=== PATIENT | male | born 1955 | race African-American/Black ===

== ENCOUNTER 2017-04-10 09:07 | Inpatient (IN) | payer OTHER ==
[2017-04-10] VITALS (12 sets, daily range): BP systolic 118–152; BP diastolic 56–97
[~2017-04-10] VITALS: Ht 180.3 cm; Wt 81.6 kg
--- NOTE | 2017-04-10 08:49 | Pre-op HX & Phy Repo 2 SIG ---
DATE OF ADMISSION: 04/10/2017 CHIEF COMPLAINT: Gangrene of the feet. HISTORY OF PRESENT ILLNESS: This is a 61-year-old man who was treated for actinomyces, sepsis, developed gangrene of both feet. [facility]. He comes to the hospital today for partial amputation of both feet. He is unable to walk. PAST MEDICAL HISTORY: End-stage renal disease, now on dialysis, sepsis, hypothyroidism with lymphedema, anemia, gangrene of the feet, and oral ulcers. MEDICATIONS: Reviewed. CODE STATUS: Full Code. ALLERGIES: None. REVIEW OF SYSTEMS: Otherwise unremarkable. PHYSICAL EXAMINATION: GENERAL: He is alert and oriented, in no distress. VITAL SIGNS: Vital signs are stable. He is afebrile. HEENT: Head is normocephalic. NECK: No jugular venous distention. CHEST: Clear. CARDIAC: Rhythm is regular. ABDOMEN: Soft and nontender. EXTREMITIES: There is no edema. He has gangrene of the distal portion of both feet. ASSESSMENT: 1. Gangrene, bilateral feet. 2. Status post sepsis. 3. Renal failure, on dialysis. 4. Hypothyroidism. 5. Anemia. PLAN: The patient is in satisfactory condition for surgery planned by Dr. Wray for partial amputation of the feet. Rogers Gaytan M.D. DR: Irena JOB#: [id number] CC: Juan Shin M.D.; Fax#: [phone] Nejad, D.PPaulette ; Fax#: [phone]
[~2017-04-10 09:07] MED LIST: ceFAZolin sod 1 GM in NS 55 ML IVPB ONE
[2017-04-10] MEDS ORDERED: Bacitracin 50000 Units Vial ONE (12:33)
[2017-04-10] MEDS ORDERED: Bupivacaine 0.5% Inj 30 ml vial INJ ONE (12:33)
[2017-04-10] MEDS ORDERED: BISACODYL10 MG/30 M RC (12:40)
[2017-04-10] MEDS ORDERED: AMOX TR-K CLV1 EAC1 ORAL (12:40)
[2017-04-10] MEDS ORDERED: CALCITRIOL0.25 MCG GT (12:41)
[2017-04-10] MEDS ORDERED: fentaNYL 100 mcg/2 mL IV ONE (13:00)
[2017-04-10] MEDS ORDERED: Dexamethasone 4mg/ml vial ONE (13:00)
[2017-04-10] MEDS ORDERED: Midazolam 2mg/2ml Inj ONE (13:00)
[2017-04-10] MEDS ORDERED: LR 1000ml ONE (13:00)
[2017-04-10] MEDS ORDERED: Lidocaine 1% MPF 10mg/ml 5ml ONE (13:00)
[2017-04-10] MEDS ORDERED: Propofol 10mg/ml 20ml IV ONE (13:00)
--- NOTE | 2017-04-10 13:02 | Anethesia Preoperative Eval ---
Anesthesia Pre-op PMH/ROS General Date of Evaluation: April 10, 2017 Time of Evaluation: 12:56 Anesthesiologist: Enzo ASA Score: ASA 4 Mallampati Score Class I : Soft palate, uvula, fauces, pillars visible Class II: Soft palate, uvula, fauces visible Class III: Soft palate, base of uvula visible Class IV: Only hard plate visible Mallampati Classification: Class III Surgeon: Nils Diagnosis: Bilateral Foot Necrosis Surgical Procedure: Amputation Bilateral Metatarsals Anesthesia History: none Family History: no anesthesia problems Allergies: Coded Allergies: No Known Allergies (Unverified , 04/07/17) Medications: see eMAR Past Medical History Cardiovascular: Reports: HTN Pulmonary: Reports: OMID Gastrointestinal/Genitourinary: Reports: ESRD - ,TH, Sun Endocrine: Reports: hypothyroidism Hematology/Immune: Reports: anemia, other - Actinomyces Sepsis PSxH Narrative: G Tube Anesthesia Pre-op Phys. Exam Physician Exam Last Vital Signs Date Time Temp Pulse Resp B/P Pulse Ox O2 Delivery O2 Flow Rate FiO2 04/10/17 11:33 98.0 84 18 145/82 99 Room Air Constitutional: NAD Neurologic: CN 2-12 intact Cardiovascular: RRR Respiratory: CTA Gastrointestinal: S/NT/ND Airway Exam Mallampati Score: Class III MO: limited ROM: limited Teeth: missing Anesthesia Pre-op A/P Labs Chemistry Test 04/10/17 12:43 Potassium Level Pending Risk Assessment & Plan Assessment: ASA 4 Plan: GA, BIS Status Change Before Surgery: No Pre-Antibiotics Dru Grams Ancef IV Given Within 1 Hr of Incision: Yes Time Given: 13:16 Av Giraldo MD April 10, 2017 13:02
[2017-04-10] MEDS ORDERED: Bupivacaine 0.25% Inj 30ml INJ ONE (13:14)
[2017-04-10] MEDS ORDERED: LR 1000ml 1,000 ML IVLG SCH (13:26)
--- NOTE | 2017-04-10 13:28 | Immediate Post-Op Evaluation ---
Immediate Post-Op Evalulation Immediate Post-Op Evalulation Procedure: Bilateral Metatarsal Amputation Date of Evaluation: April 10, 2017 Time of Evaluation: 15:15 IV Fluids: 500 Blood Products: 0 Estimated Blood Loss: 10 Urinary Output: 0 Blood Pressure Systolic: 118 Blood Pressure Diastolic: 56 Pulse Rate: 91 Respiratory Rate: 16 O2 Sat by Pulse Oximetry: 100 Temperature (Fahrenheit): 97 Pain Score (1-10): 3 Nausea: No Vomiting: No Complications 0 Patient Status: awake, reacts, patent, extubated, none Hydration Status: adequate Dru Grams Ancef IV Given Within 1 Hr of Incision: Yes Time Given: 13:16 Av Giraldo MD April 10, 2017 13:28
[2017-04-10] MEDS ORDERED: Ketorolac 60mg Inj IV PRN (13:30)
[2017-04-10] MEDS ORDERED: Norco 5mg/325mg tab ORAL PRN (13:30)
[2017-04-10] MEDS ORDERED: Midazolam 2mg/2ml Inj IVP PRN (13:30)
[2017-04-10] MEDS ORDERED: Norco 7.5mg/325mg tab ORAL PRN (13:30)
[2017-04-10] MEDS ORDERED: Oxycodone/Acetaminophen 5-325 ORAL PRN (13:30)
[2017-04-10] MEDS ORDERED: Ketorolac 30mg Inj IV PRN (13:30)
[2017-04-10] MEDS ORDERED: DiphenhydrAMINE 50mg/ml Inj IVP PRN (13:30)
[2017-04-10] MEDS ORDERED: Atropine Inj 1mg/10ml Syr IV PRN (13:30)
[2017-04-10] MEDS ORDERED: fentaNYL 100 mcg/2 mL IV PRN (13:30)
[2017-04-10] MEDS ORDERED: Metoclopramide 10mg/2ml Inj IVP PRN (13:30)
[2017-04-10] MEDS ORDERED: Meperidine 25mg/0.5ml Inj IV PRN (13:30)
[2017-04-10] MEDS ORDERED: LORazepam Inj 2mg/ml 1ml IV PRN (13:30)
[2017-04-10] MEDS ORDERED: POLYETHYLENE GL17 GM GT (13:57)
[2017-04-10] MEDS ORDERED: NEPHROVITE1 TAB GT (13:57)
[2017-04-10] MEDS ORDERED: SENNA8.6 M2 GT (13:57)
[2017-04-10] MEDS ORDERED: HEPARIN SO5000 UNIT2 SUBQ (13:57)
[2017-04-10] MEDS ORDERED: PHOSLYRA667 MG/5 M GT (13:57)
[2017-04-10] MEDS ORDERED: SYNTHROID50 MCG GT (13:57)
[2017-04-10] MEDS ORDERED: NYSTATIN500000 UNI ORAL (13:57)
[2017-04-10] MEDS ORDERED: ZANTAC150 MG GT (14:07)
--- NOTE | 2017-04-10 14:53 | Pre-Procedure Note/Attestation ---
Pre-Procedure Note/Attestation Complete Prior to Procedure Planned Procedure: bilateral Procedure Narrative: Bilateral Transmetatarsal Amputation Indications for Procedure Pre-Operative Diagnosis: Gangrene Bilateral feet ESRD Attestation I attest that I discussed the nature of the procedure; its benefits; risks and complications; and alternatives (and the risks and benefits of such alternatives ), prior to the procedure, with the patient (or the patient's legal ocean import representative). I attest that, if there was a reasonable possibility of needing a blood transfusion, the patient (or the patient's legal ocean import representative) was given the [facility] standardized written summary, pursuant to the Blake Gurpreet Blood Safety Act ([place] Health and Safety Code # 1645, as amended). I attest that I re-evaluated the patient just prior to the surgery and that there has been no change in the patient's H&P, except as documented below: Mirza Wray DPM April 10, 2017 14:53
--- NOTE | 2017-04-10 15:20 | Brief Operative Note ---
Immediate Post Operative Note Operative Note Chief Complaint: Dict# [id number] Pre-op Diagnosis: Gangrene Bilateral feet ESRD Procedure: Right foot transmetatarsal amputation Left foot transmetatarsal amputation Post-op Diagnosis: same as pre-op Surgeon: Mirza Wray DPM [employer] Executive Director: none Additional Surgeons: none Anesthesiologist: Jose Anesthesia: general Specimen: yes - right and left forefoot. cultures of right and left foot wounds Complications: none Condition: stable Estimated Blood Loss: volume - 10 Drains: none Tourniquet time: 66 - min Implant(s) used?: No Mirza Wray DPM April 10, 2017 15:20
[2017-04-10] MEDS: Hydromorphone 0.5mg/0.5ml inj IVP PRN ×4 (15:25→16:22)
--- NOTE | 2017-04-10 22:19 | Operative Note - Dictated ---
DATE OF OPERATION: 04/10/2017 SURGEON: Mirza Wray D.P.M. TAX ACCOUNTING ASSISTANT SURGEON: None. ANESTHESIOLOGIST: Av Giraldo M.D. TYPE OF ANESTHESIA: General with LMA. PREOPERATIVE DIAGNOSES: 1. Gangrene, left foot. 2. Gangrene, right foot. 3. End-stage renal disease. POSTOPERATIVE DIAGNOSES: 1. Gangrene, left foot. 2. Gangrene, right foot. 3. End-stage renal disease. PROCEDURE PERFORMED: 1. Right foot transmetatarsal amputation. 2. Left foot transmetatarsal amputation. SPECIMENS: Right and left forefoot as well as cultures of right and left wound. COMPLICATIONS: None. CONDITION: At PACU stable. ESTIMATED BLOOD LOSS: About 10 mL. DRAINS: No drain. TOURNIQUET TIME: 33 minutes each side. IMPLANTS USED: None. OPERATIVE PROCEDURE: The patient was transported to the operating room and placed on the operating table in a supine position. Anesthesiologist then began general anesthesia. The right and left ankle were blocked utilizing 10 mL each of 0.25% plain Marcaine. Bilateral feet were scrubbed, prepped, and draped in an usual aseptic manner. After anesthesia check, Esmarch was utilized to exsanguinate the right foot. Tourniquet was inflated to a pressure of 250 mmHg. A fishmouth incision was made along the right forefoot and encompassed the entire gangrenous site. There was a plantar medial necrosis that was extending more proximally than that the rest of the necrosis. This was included in the excised forefoot. Incision was deepened down to bone level. Open lumens were cauterized. The forefoot was disarticulated at the metatarsophalangeal joints. Plantar and dorsal flaps were elevated. Surgicel was utilized to resect the distal one-third of the metatarsals. One, two, three, four, and five metatarsals were excised. Wound was examined. Cultures were taken. Again, any open lumens were cauterized. Wound was flushed with saline and bacitracin. The incision was coapted utilizing 3-0 Vicryl and skin with payton. A temporary dressing was placed. Tourniquet was deflated at 33 minutes. Exactly the same operative procedure was performed for the left side. No deviation from anything specified above was performed. Tourniquet was deflated at 33 minutes on the left side as well. Dressings were applied to both sides. The patient tolerated the procedure and anesthesia well and was transported to the recovery room in stable condition. There were no complications. We will admit the patient to the floor for observation for bleeding and pain management. Medical orders will be completed by Dr. Rogers Gaytan. Case was discussed with the patient's sister, Gregg Epps, in the surgical waiting area. She understands that the procedure went well. We will monitor for any infections, dehiscence, and recurrence for gangrenous changes to the feet. The patient requires to be nonambulatory bilaterally until the incisions are healed. If the patient's condition is stable, we will return back to the [facility] for continued follow up and rehabilitation. Mirza Wray D.P.M. DR: TRES JOB#: [id number] CC:
[2017-04-11] MEDS: Norco 10mg/325mg tab ORAL PRN ×2 (03:22→22:49)
[2017-04-11 04:00] VITALS: BP 150/96
[2017-04-11] MEDS ORDERED: Heparin Sod 1000 units/ml 10ml IV ONE (06:00)
[2017-04-11] MEDS: Hydromorphone 0.5mg/0.5ml inj IVP PRN ×3 (06:52→19:49)
[2017-04-11 08:00] VITALS: BP 112/62
[2017-04-11 08:27] LABS: BASOPHILS % (AUTO) 0.8 % (0.0-2.0); EOSINOPHILS % (AUTO) 0.3 % (0.0-3.0); LYMPHOCYTES % (AUTO) 25.3 % (20.0-45.0); MEAN CORPUSCULAR HGB CONC 30.4 G/DL (32.0-36.0); MEAN CORPUSCULAR VOLUME 99 FL (80-99); MEAN PLATELET VOLUME 6.2 FL (6.5-10.1); MONOCYTES % (AUTO) 9.2 % (1.0-10.0); NEUTROPHILS % (AUTO) 64.4 % (45.0-75.0); PLATELET COUNT 386 K/UL (150-450); RED BLOOD COUNT 3.75 M/UL (4.70-6.10); WHITE BLOOD COUNT 8.8 K/UL (4.8-10.8)
[2017-04-11] MEDS: Nephrovite tab GT SCH ×2 (08:30→14:22)
[2017-04-11 08:39] LABS: ANION GAP 12 (5-15); CALCIUM 9.3 mg/dL (8.6-10.2); CARBON DIOXIDE 25 mEQ/L (20-30); CHLORIDE 97 mEQ/L (98-107); GLOMERULAR FILTRATION RATE > 60 mL/min (>60); HEMOLYSIS 3; PHOSPHORUS 3.3 mg/dL (2.5-4.8); POTASSIUM 4.7 mEQ/L (3.4-4.9); SODIUM 134 mEQ/L (135-145)
--- NOTE | 2017-04-11 09:30 | 48 Hour Post Anesthesia Eval ---
Post Anesthesia Evaluation Procedure: Bilateral Metatarsal Amputation Date of Evaluation: April 11, 2017 Time of Evaluation: 09:33 Blood Pressure Systolic: 112 0: 62 Pulse Rate: 99 Respiratory Rate: 20 Temperature (Fahrenheit): 97.9 O2 Sat by Pulse Oximetry: 95 Airway: patent Nausea: No Vomiting: No Pain Intensity: 3 Hydration Status: adequate Cardiopulmonary Status: Stable Mental Status/LOC: patient returned to baseline Follow-up Care/Observations: As per surgery Post-Anesthesia Complications: No anesthetic complication Follow-up care needed: N/A DANILO VILLALBA M.D. April 11, 2017 09:30
[2017-04-11 12:00] VITALS: BP 123/74
--- NOTE | 2017-04-11 14:12 | General Progress Note ---
Assessment/Plan Assessment/Plan 1. Gangrene, bilateral feet. 2. Status post sepsis. 3. Renal failure, on dialysis. 4. Hypothyroidism. 5. Anemia. tolerated surgery well Cr 1.0 disc w Delbert Wray and Aleida will hold dialysis and check 24 hr Cr clearance post op care SNF when ok w podiatry Subjective Constitutional: Reports: other - surgical pain Allergies: Coded Allergies: No Known Allergies (Unverified , 04/07/17) Objective Last 24 Hour Vital Signs Date Time Temp Pulse Resp B/P Pulse Ox O2 Delivery O2 Flow Rate FiO2 04/11/17 12:00 97.7 90 19 123/74 99 Nasal Cannula 2.0 04/11/17 09:30 99 20 95 04/11/17 08:00 97.9 99 20 112/62 95 Nasal Cannula 2.0 04/11/17 04:00 97.0 86 18 150/96 100 Room Air 04/10/17 20:00 97.0 109 18 118/73 100 Room Air 04/10/17 18:00 97.0 96 18 152/97 98 Room Air 04/10/17 16:34 98.0 90 18 140/79 100 Nasal Cannula 2.0 04/10/17 16:26 97.0 04/10/17 16:20 97.0 04/10/17 16:20 97.0 04/10/17 16:03 93 18 136/79 100 Nasal Cannula 2.0 04/10/17 15:46 98 18 145/79 100 Nasal Cannula 2.0 04/10/17 15:43 96 18 134/81 100 Nasal Cannula 2.0 04/10/17 15:29 97 18 152/90 100 Nasal Cannula 2.0 04/10/17 15:25 94 18 149/76 100 Simple Mask 6.0 04/10/17 15:14 99 18 118/81 100 Simple Mask 6.0 04/10/17 15:10 100 14 123/58 100 Simple Mask 6.0 04/10/17 15:05 91 16 100 04/10/17 15:04 97.0 102 16 118/56 100 Simple Mask 6.0 Intake and Output 04/10/17 04/11/17 19:00 07:00 Intake Total 1240 ml 200 ml Output Total 10 ml 200 ml Balance 1230 ml 0 ml Intake Oral 240 ml 200 ml IV Total 1000 ml Output Urine Total 200 ml Estimated Blood Loss 10 ml # Voids 1 1 Laboratory Tests 04/11/17 08:15: White Blood Count 8.8, Red Blood Count 3.75L, Hemoglobin 11.2L, Hematocrit 37.0L , Mean Corpuscular Volume 99, Mean Corpuscular Hemoglobin 30.0, Mean Corpuscular Hemoglobin Concent 30.4L, Red Cell Distribution Width 14.0, Platelet Count 386, Mean Platelet Volume 6.2L, Neutrophils (%) (Auto) 64.4, Lymphocytes (%) (Auto) 25.3, Monocytes (%) (Auto) 9.2, Eosinophils (%) (Auto) 0.3, Basophils (%) (Auto) 0.8, Sodium Level 134L, Potassium Level 4.7, Chloride Level 97L, Carbon Dioxide Level 25, Anion Gap 12, Blood Urea Nitrogen 23, Creatinine 1.0, Estimat Glomerular Filtration Rate > 60, Glucose Level 117H, Calcium Level 9.3, Phosphorus Level 3.3 Height (Feet): 5 Height (Inches): 11.00 Weight (Pounds): 180 General Appearance: WD/WN, no apparent distress Neck: supple Cardiovascular: normal rate Respiratory/Chest: lungs clear HENNY FREEMAN April 11, 2017 14:12
--- NOTE | 2017-04-11 14:23 | History & Physical ---
History and Physical History & Physicial HP dictated # [id number] GRAEME VENTURA April 11, 2017 14:23
[2017-04-11 16:00] VITALS: BP 121/74
--- NOTE | 2017-04-11 16:23 | Podiatric Progress Note ---
Assessment/Plan Patient Waldemar Epps is a 62 year old male who was admitted on April 10, 2017 at 10:50 with Problems: Assessment/Plan A/ Gangrene bilateral feet ESRD P/ Plan for first post op dressing change tomorrow. If looks good will d/c back to SNF tomorrow. Cont pain meds PRN Strict non weight bearing bilateral feet. Case d/w nursing. Subjective Allergies: Coded Allergies: No Known Allergies (Unverified , 04/07/17) Subjective Pain managed well. He is happy that he had surgery and also that his might not need dialysis. He was seen by PT. Objective Exam Last 24 Hour Vital Signs Date Time Temp Pulse Resp B/P Pulse Ox O2 Delivery O2 Flow Rate FiO2 04/11/17 12:00 97.7 90 19 123/74 99 Nasal Cannula 2.0 04/11/17 09:30 99 20 95 04/11/17 08:00 97.9 99 20 112/62 95 Nasal Cannula 2.0 04/11/17 04:00 97.0 86 18 150/96 100 Room Air 04/10/17 20:00 97.0 109 18 118/73 100 Room Air 04/10/17 18:00 97.0 96 18 152/97 98 Room Air 04/10/17 16:34 98.0 90 18 140/79 100 Nasal Cannula 2.0 04/10/17 16:26 97.0 04/10/17 16:20 97.0 04/10/17 16:20 97.0 Laboratory Tests Test 04/11/17 08:15 White Blood Count 8.8 K/UL (4.8-10.8) Red Blood Count 3.75 M/UL (4.70-6.10) L Hemoglobin 11.2 G/DL (14.2-18.0) L Hematocrit 37.0 % (42.0-52.0) L Mean Corpuscular Volume 99 FL (80-99) Mean Corpuscular Hemoglobin 30.0 PG (27.0-31.0) Mean Corpuscular Hemoglobin Concent 30.4 G/DL (32.0-36.0) L Red Cell Distribution Width 14.0 % (11.6-14.8) Platelet Count 386 K/UL (150-450) Mean Platelet Volume 6.2 FL (6.5-10.1) L Neutrophils (%) (Auto) 64.4 % (45.0-75.0) Lymphocytes (%) (Auto) 25.3 % (20.0-45.0) Monocytes (%) (Auto) 9.2 % (1.0-10.0) Eosinophils (%) (Auto) 0.3 % (0.0-3.0) Basophils (%) (Auto) 0.8 % (0.0-2.0) Sodium Level 134 mEQ/L (135-145) L Potassium Level 4.7 mEQ/L (3.4-4.9) Chloride Level 97 mEQ/L (98-107) L Carbon Dioxide Level 25 mEQ/L (20-30) Anion Gap 12 (5-15) Blood Urea Nitrogen 23 mg/dL (7-23) Creatinine 1.0 mg/dL (0.7-1.2) Estimat Glomerular Filtration Rate > 60 mL/min (>60) Glucose Level 117 mg/dL (74-106) H Calcium Level 9.3 mg/dL (8.6-10.2) Phosphorus Level 3.3 mg/dL (2.5-4.8) Microbiology Date/Time Source Procedure Growth Status 04/10/17 15:01 Foot Left Gram Stain - Final Resulted 04/10/17 15:01 Foot Left Aerobic Culture Pending Resulted 04/10/17 15:01 Foot Left Anaerobic Culture Pending Resulted Dermatological Dermatological Narrative Bilateral bandages clean dry and intact. No strike through Mirza Wray [facility] April 11, 2017 16:23
[2017-04-11 20:00] VITALS: BP 130/70
[2017-04-12] VITALS: BP 140/85
--- NOTE | 2017-04-12 01:11 | Consultation ---
DATE OF CONSULTATION: 04/10/2017 NEPHROLOGY CONSULTATION REFERRING PHYSICIAN: Rogers Gaytan M.D. REASON FOR CONSULTATION: Renal failure. HISTORY OF PRESENT ILLNESS: This is a 62-year-old male, who was admitted to [facility] few months ago with sepsis, respiratory failure. He had actinomyces in the blood. He was in septic shock requiring pressors and ventilator. Eventually, he improved to the point when he was taken off ventilator and sent to medical floor. He had developed bilateral lower extremity gangrene. Also, he remained dialysis dependent. He was eventually discharged to [facility] under the care of Dr. Gaytan. Since then, he has been on hemodialysis every Monday, , and Monday. PAST MEDICAL HISTORY: Also, includes history of hypothyroidism, anemia, and oral ulcers for which he received G-tube. MEDICATIONS: Reviewed. ALLERGIES: No known drug allergies. SOCIAL HISTORY: No history of smoking or alcohol abuse. The patient used to work as a business process consultant. REVIEW OF SYSTEMS: Unremarkable. PHYSICAL EXAMINATION: GENERAL: The patient is a pleasant male, in no acute distress. VITAL SIGNS: Blood pressure is 122/74, pulse 90, temperature 97.7 degrees, and respiratory rate is 19. HEENT: [place] conjunctivae. Anicteric sclerae. NECK: Supple. LUNGS: Clear to auscultation. HEART: S1 and S2 without murmurs or rubs. ABDOMEN: Soft and nontender. EXTREMITIES: No cyanosis or edema. The patient has bilateral amputation at the transmetatarsal area. LABORATORY AND DIAGNOSTIC DATA: CBC shows a WBC of 8.8, hematocrit 37, hemoglobin is 10.2, and platelets 386,000. Chemistry panel shows serum sodium 134, potassium 4.7, chloride 97, BUN is 23, creatinine 1, and blood sugar is 117. Calcium is 9.3. Phosphorus 2.3. ASSESSMENT: This is a 62-year-old male, who was admitted with bilateral lower extremity gangrene in the distal foot. He had bilateral foot amputations by Dr. Wray. In terms of his renal function, he has been on dialysis in the past, but his creatinine is now lower than baseline. He still says that he does not make much urine. PLAN: I would hold off on dialysis. At this point, I will get a 24-hour urine for creatinine clearance. Case was discussed with the RN, also with Dr. Gaytan. Further recommendations will be given based on those results regarding continuation of dialysis. Thank you very much. Juan Shin M.D. DR: ESTEVAN JOB#: [id number] CC: MICKEY
[2017-04-12] MEDS: Hydromorphone 0.5mg/0.5ml inj IVP PRN ×2 (01:31→06:58)
[2017-04-12 04:00] VITALS: BP 146/88
[2017-04-12 06:28] LABS: BASOPHILS % (AUTO) 1.3 % (0.0-2.0); LYMPHOCYTES % (AUTO) 33.4 % (20.0-45.0); MEAN CORPUSCULAR HEMOGLOBIN 30.5 PG (27.0-31.0); MEAN CORPUSCULAR HGB CONC 30.7 G/DL (32.0-36.0); MEAN CORPUSCULAR VOLUME 99 FL (80-99); MEAN PLATELET VOLUME 6.4 FL (6.5-10.1); MONOCYTES % (AUTO) 9.8 % (1.0-10.0); NEUTROPHILS % (AUTO) 52.4 % (45.0-75.0); PLATELET COUNT 393 K/UL (150-450); RED BLOOD COUNT 3.64 M/UL (4.70-6.10); RED CELL DISTRIBUTION WIDTH 14.1 % (11.6-14.8)
[2017-04-12 06:46] LABS: ALANINE AMINOTRANSFERASE 55 U/L (3-41); ALBUMIN/GLOBULIN RATIO 0.6 (1.0-2.7); ANION GAP 11 (5-15); ASPARTATE AMINO TRANSFERASE 44 U/L (5-40); CALCIUM 9.7 mg/dL (8.6-10.2); CARBON DIOXIDE 26 mEQ/L (20-30); CHLORIDE 98 mEQ/L (98-107); GLOMERULAR FILTRATION RATE > 60 mL/min (>60); HEMOLYSIS 1; SODIUM 135 mEQ/L (135-145); TOTAL PROTEIN 6.9 g/dL (6.6-8.7)
[2017-04-12 08:00] VITALS: BP 94/54
[2017-04-12] MEDS: Nephrovite tab GT SCH (08:39)
[2017-04-12 12:00] VITALS: BP 148/96
[2017-04-12] MEDS: Norco 10mg/325mg tab ORAL PRN ×3 (13:21→21:33)
--- NOTE | 2017-04-12 15:20 | Podiatric Progress Note ---
Assessment/Plan Patient Waldemar Epps is a 62 year old male who was admitted on April 10, 2017 at 10:50 with Problems: Assessment/Plan A/ Gangrene bilateral feet s/p bilateral TMA ESRD P/ First post op dressing change today. No further dressings changes needed until after discharge Cultures bilateral - no growth Cont pain meds PRN. Pain managed with [place] Strict non weight bearing bilateral feet. Discussed with patient. Also discussed recovery with him again. Case d/w nursing. Ok to D/C to SNF from my standpoint, will follow there. Subjective Allergies: Coded Allergies: No Known Allergies (Unverified , 04/07/17) Subjective Patient's pain controlled with intermittent [place]. No complaints. Objective Exam Last 24 Hour Vital Signs Date Time Temp Pulse Resp B/P Pulse Ox O2 Delivery O2 Flow Rate FiO2 04/12/17 14:20 98.4 04/12/17 12:00 97.7 115 18 148/96 96 Room Air 04/12/17 08:00 98.4 118 18 94/54 98 04/12/17 07:28 97.3 04/12/17 04:00 97.3 103 20 146/88 96 Nasal Cannula 2.0 04/12/17 00:00 98.1 110 20 140/85 96 Nasal Cannula 2.0 04/11/17 20:00 97.9 94 20 130/70 94 Nasal Cannula 2.0 04/11/17 16:00 97.8 96 20 121/74 98 Nasal Cannula 2.0 Laboratory Tests Test 04/12/17 05:10 White Blood Count 10.0 K/UL (4.8-10.8) Red Blood Count 3.64 M/UL (4.70-6.10) L Hemoglobin 11.1 G/DL (14.2-18.0) L Hematocrit 36.2 % (42.0-52.0) L Mean Corpuscular Volume 99 FL (80-99) Mean Corpuscular Hemoglobin 30.5 PG (27.0-31.0) Mean Corpuscular Hemoglobin Concent 30.7 G/DL (32.0-36.0) L Red Cell Distribution Width 14.1 % (11.6-14.8) Platelet Count 393 K/UL (150-450) Mean Platelet Volume 6.4 FL (6.5-10.1) L Neutrophils (%) (Auto) 52.4 % (45.0-75.0) Lymphocytes (%) (Auto) 33.4 % (20.0-45.0) Monocytes (%) (Auto) 9.8 % (1.0-10.0) Eosinophils (%) (Auto) 3.0 % (0.0-3.0) Basophils (%) (Auto) 1.3 % (0.0-2.0) Sodium Level 135 mEQ/L (135-145) Potassium Level 5.0 mEQ/L (3.4-4.9) H Chloride Level 98 mEQ/L (98-107) Carbon Dioxide Level 26 mEQ/L (20-30) Anion Gap 11 (5-15) Blood Urea Nitrogen 23 mg/dL (7-23) Creatinine 1.0 mg/dL (0.7-1.2) Estimat Glomerular Filtration Rate > 60 mL/min (>60) Glucose Level 91 mg/dL (74-106) Calcium Level 9.7 mg/dL (8.6-10.2) Total Bilirubin 0.6 mg/dL (0.0-1.2) Aspartate Amino Transf (AST/SGOT) 44 U/L (5-40) H Alanine Aminotransferase (ALT/SGPT) 55 U/L (3-41) H Alkaline Phosphatase 203 U/L (40-129) H Total Protein 6.9 g/dL (6.6-8.7) Albumin 2.8 g/dL (3.5-5.2) L Globulin 4.1 g/dL Albumin/Globulin Ratio 0.6 (1.0-2.7) L Microbiology Date/Time Source Procedure Growth Status 04/10/17 12:15 Nasal Nares MRSA Culture - Final NO METHICILLIN RESISTANT STAPH AUREUS... Complete 04/10/17 15:01 Foot Left Gram Stain - Final Resulted 04/10/17 15:01 Foot Left Aerobic Culture - Preliminary Resulted 04/10/17 15:01 Foot Left Anaerobic Culture Pending Resulted Dermatological Dermatological Narrative Bilateral incisions are well coapted, no signs of acute infection. Mirza Wray DPLalo April 12, 2017 15:20
[2017-04-12 16:00] VITALS: BP 139/83
[2017-04-12] MEDS ORDERED: Acetaminophen 500mg (ES) tab ORAL ONE (16:30)
[2017-04-12 17:03] LABS: TOTAL PROTEIN 24HR URINE 511.5 mg/24hr (< 150)
[2017-04-12] MEDS ORDERED: HYDROCODON-ACE1 EA13 ORAL (17:16)
--- NOTE | 2017-04-12 17:20 | Discharge Summary ---
Discharge Summary Hospital Course Date of Admission April 10, 2017 at 10:50 Date of Discharge 04/12/17 Admitting Diagnosis gangrene, feet HPI Waldemar Epps is a 62 year old male who was admitted on April 10, 2017 at 10:50 for Gangrene Bilateral Feet Consultations podiatry, renal Procedures bilateral partial foot amputations Hospital Course was on dialysis but Cr normal; dialysis held amputations done with no complications dc snf off dialysis 24 hr urine pending Discharge Medications New Medications: Hydrocodone Bit/Acetaminophen 10-325* (Hydrocodon-Acetaminophn 10-325*) 1 Each Tablet 1 EA ORAL Q4H PRN, #1 TAB Continued Medications: Bisacodyl (Bisacodyl) 10 Mg/30 Ml Enema 10 MG RC PRN, EA Heparin Sod (Porcine) (Heparin Sodium*) 5 000/1 Ml Vial 5000 UNITS SUBQ TUES, THURS, SAT , VIAL Levothyroxine Sodium (Synthroid) 50 Mcg Tablet 175 MCG GT DAILY, TAB Take in the morning on an empty stomach, at least 30 minutes beforefood. Polyethylene Glycol 3350* (Polyethylene Glycol 3350*) 17 Gm Powd.pack 17 GM GT PRN, PACKET Ranitidine Hcl* (Zantac*) 150 Mg Tablet 150 MG GT BID, #30 TAB 0 Refills Sennosides (Senna) 8.6 Mg Tablet 8.6 MG GT BID PRN for Constipation, TAB Vitamin B Cmplx/Vit C/Folic AC (Nephro-Kalina Tablet) 0.8 Mg Tablet 1 TAB GT DAILY, #30 TAB 0 Refills Discontinued Medications: Amoxicillin/Potassium Clav 500-125 Mg Tab* (Amox Tr-K Clv 500-125 Mg Tab*) 1 Each Tablet 1 TAB ORAL DAILY, TAB Calcitriol (Calcitriol) 0.25 Mcg Capsule 0.25 MCG GT, CAP Calcium Acetate (Phoslyra) 667 Mg/5 Ml Solution 667 MG GT Nystatin (Nystatin) 500,000 Unit Tablet 447135 UNIT ORAL Q6HR, TAB Discharge Condition Upon Discharge: improving, stable Discharge Disposition Patient was discharged to Discharge Diagnoses: (1) Gangrene of foot (2) Renal failure (3) Hypothyroid HENNY FREEMAN April 12, 2017 17:20
[2017-04-12 20:00] VITALS: BP 121/71
[2017-04-13] MEDS: Norco 10mg/325mg tab ORAL PRN ×2 (03:01→06:44)
[2017-04-13 04:00] VITALS: BP 144/87
[2017-04-13 04:30] VITALS: BP 144/87
[2017-04-13 08:00] VITALS: BP 120/91
[2017-04-13] MEDS: Nephrovite tab GT SCH (08:35)
[2017-04-13] MEDS ORDERED: Fleet's Enema 133ml RECTAL ONE (09:00)
[2017-04-13 11:41] LABS: CREATININE URINE 55 MG/DL
--- NOTE | 2017-04-13 11:56 | Nephrology Progress Note ---
Assessment/Plan Problem List: (1) Gangrene of foot (2) Renal failure (3) Hypothyroid Assessment Creatinine Clearance 64 ml/min Plan observe off dialysis DC today Subjective Subjective feels ok Objective Objective Last 24 Hour Vital Signs Date Time Temp Pulse Resp B/P Pulse Ox O2 Delivery O2 Flow Rate FiO2 04/13/17 08:00 98.4 98 18 120/91 97 Room Air 04/13/17 04:30 97.7 92 18 144/87 97 Room Air 04/13/17 04:00 97.7 92 16 144/87 97 Room Air 04/12/17 20:00 98.2 100 18 121/71 98 Room Air 04/12/17 18:56 98.4 04/12/17 16:00 97.1 76 20 139/83 96 Room Air 04/12/17 12:00 97.7 115 18 148/96 96 Room Air Intake and Output 04/12/17 04/13/17 19:00 07:00 Intake Total 480 ml 360 ml Output Total 1100 ml 550 ml Balance -620 ml -190 ml Intake Oral 480 ml 360 ml Output Urine Total 1100 ml 550 ml Height (Feet): 5 Height (Inches): 11.00 Weight (Pounds): 180 Cardiovascular: normal rate Respiratory/Chest: lungs clear GRAEME VENTURA April 13, 2017 11:56
[2017-04-13 12:00] VITALS: BP 141/80
== END 2017-04-13 14:00 | DRG 239 ==
LOC: SDSOVERFLO 10:50 → EDBD 13:00 → 3E 16:56
PROC: 0Y6N0ZD Detachment at Left Foot, Partial 4th Ray, Open Approach (ICD-10-PCS; principal; 2017-04-10 13:00)
PROC: 0Y6M0ZF Detachment at Right Foot, Partial 5th Ray, Open Approach (ICD-10-PCS; principal; 2017-04-10 13:00)
PROC: 5A1D00Z (ICD-10-PCS; principal; 2017-04-10 13:00)
PROC: 0Y6N0ZB Detachment at Left Foot, Partial 2nd Ray, Open Approach (ICD-10-PCS; principal; 2017-04-10 13:00)
PROC: 0Y6M0ZD Detachment at Right Foot, Partial 4th Ray, Open Approach (ICD-10-PCS; principal; 2017-04-10 13:00)
PROC: 0Y6N0Z9 Detachment at Left Foot, Partial 1st Ray, Open Approach (ICD-10-PCS; principal; 2017-04-10 13:00)
PROC: 0Y6M0Z9 Detachment at Right Foot, Partial 1st Ray, Open Approach (ICD-10-PCS; principal; 2017-04-10 13:00)
PROC: 0Y6M0ZC Detachment at Right Foot, Partial 3rd Ray, Open Approach (ICD-10-PCS; principal; 2017-04-10 13:00)
PROC: 0Y6M0ZB Detachment at Right Foot, Partial 2nd Ray, Open Approach (ICD-10-PCS; principal; 2017-04-10 13:00)
PROC: 0Y6N0ZF Detachment at Left Foot, Partial 5th Ray, Open Approach (ICD-10-PCS; principal; 2017-04-10 13:00)
PROC: 0Y6N0ZC Detachment at Left Foot, Partial 3rd Ray, Open Approach (ICD-10-PCS; principal; 2017-04-10 13:00)
DX: I96 Gangrene, not elsewhere classified (principal); N18.6 End stage renal disease; E03.9 Hypothyroidism, unspecified; D64.9 Anemia, unspecified; Z99.2 Dependence on renal dialysis
CPT/HCPCS: 36415; 80048; 80053; 81050; 82570; 84100; 84132; 84156; 85025; 87070; 87075; 87081; 87205; 94003; 94150; J2180; J2250; J2405